=== PATIENT | male | born 1960 | race Caucasian/White ===

== ENCOUNTER 2016-04-29 05:31 | Inpatient (IN) | payer OTHER ==
[~2016-04-29] VITALS: Ht 177.8 cm; Wt 61.2 kg
[2016-04-29] VITALS (55 sets, daily range): BP systolic 60–153; RESP 17–37; TEMP 97.1–98.9; Ht 177.8 cm; Wt 61.2 kg
[2016-04-29] MEDS ORDERED: MAG HYDROX 30 ML UDC PO PRN ×2 (08:15→08:20)
[2016-04-29] MEDS ORDERED: BISACODYL 10 MG SUPP RECTAL PRN ×2 (08:15→08:20)
[2016-04-29] MEDS ORDERED: ALU/MAG/SIM 30 ML UDC PO PRN ×2 (08:15→08:20)
[2016-04-29] MEDS ORDERED: SALINE FLUSH 10 ML FLUSH PRN ×2 (08:15→08:20)
[2016-04-29] MEDS ORDERED: BISACODYL EC 5 MG TAB PO PRN ×2 (08:15→08:20)
[2016-04-29] MEDS ORDERED: ACETAMINOPHEN 325 MG TAB PO PRN (08:20)
[2016-04-29] MEDS ORDERED: ONDANSETRON 4 MG VIAL IV PRN (08:20)
[2016-04-29] MEDS ORDERED: **NOTE TO NURSE XX SCH (08:45)
[2016-04-29] MEDS ORDERED: NOREPINEPHRINE 16 MG in DEXTROSE 5% 234 ML IV SCH (08:50)
[2016-04-29] MEDS ORDERED: CEFTRIAXONE 1 GM in SODIUM CHLORIDE 0.9% 50 ML IV SCH (09:00)
[2016-04-29] MEDS ORDERED: PANTOPRAZOLE 40 MG VIAL IV SCH (09:00)
[2016-04-29] MEDS ORDERED: DOXYCYCLINE 100 MG in SODIUM CHLORIDE 0.9% 250 ML IV SCH (09:07)
[2016-04-29] MEDS: PROPOFOL 100 ML 100 ML IV PRN ×3 (09:18→17:59)
[2016-04-29] MEDS ORDERED: LACT RINGERS 1,000 ML IV ONE (10:00)
[2016-04-29] MEDS ORDERED: FENTANYL DRIP 50 ML IV PRN (10:05)
[2016-04-29] MEDS ORDERED: PHARMACY TO DOSE IV SCH (10:55)
[2016-04-29] MEDS ORDERED: CEFEPIME 2,000 MG in SODIUM CHLORIDE 0.9% 100 ML IV SCH (10:55)
[2016-04-29] MEDS: ENOXAPARIN 40 MG/0.4 ML SYR SUBQ SCH (10:59)
[2016-04-29] MEDS: NEB-BROVANA 15 MCG/2 ML INH SCH ×2 (11:01→18:08)
[2016-04-29] MEDS: SODIUM CHLORIDE 0.9% 1,000 ML IV SCH (11:03)
[2016-04-29] MEDS: DUONEB INH SCH ×4 (11:17→22:49)
[2016-04-29] MEDS: METHYLPRED SOD SUCC 40 MG VIAL IV SCH ×2 (11:29→17:58)
[2016-04-29] MEDS: SODIUM CHLORIDE 0.9% FLUSH BAG 500 ML IV SCH (11:30)
[2016-04-29] MEDS: FENTANYL DRIP 50 ML IV PRN ×3 (11:34→17:59)
[2016-04-29] MEDS: VANCOMYCIN 1,250 MG in SODIUM CHLORIDE 0.9% 250 ML IV SCH (12:35)
[2016-04-29] MEDS ORDERED: PHENTOLAMINE 5 MG VIAL INTRADERM ONE (14:00)
[2016-04-29] MEDS: CEFEPIME 2,000 MG in DEXTROSE 5% 100 ML IV SCH (16:25)
[2016-04-29] MEDS: FAMOTIDINE 20 MG INJ IV SCH (19:42)
[2016-04-29] MEDS: SALINE FLUSH 10 ML FLUSH SCH ×2 (19:43)
[2016-04-30] VITALS (49 sets, daily range): BP systolic 90–152; RESP 10–21; TEMP 98–99
[2016-04-30] MEDS: CEFEPIME 2,000 MG in DEXTROSE 5% 100 ML IV SCH ×3 (00:04→16:10)
[2016-04-30] MEDS: METHYLPRED SOD SUCC 40 MG VIAL IV SCH ×4 (00:04→18:33)
[2016-04-30] MEDS: VANCOMYCIN 1,250 MG in SODIUM CHLORIDE 0.9% 250 ML IV SCH ×2 (00:04→11:37)
[2016-04-30] MEDS: FENTANYL DRIP 50 ML IV PRN ×4 (00:10→18:35)
[2016-04-30] MEDS ORDERED: *PINK BRACELET XX ONE (01:05)
[2016-04-30] MEDS: DUONEB INH SCH ×6 (02:11→23:08)
[2016-04-30] MEDS: SODIUM CHLORIDE 0.9% 1,000 ML IV SCH ×2 (05:42→18:35)
[2016-04-30] MEDS: SODIUM CHLORIDE 0.9% FLUSH BAG 500 ML IV SCH (05:43)
[2016-04-30] MEDS: NEB-BROVANA 15 MCG/2 ML INH SCH ×2 (07:20→18:14)
[2016-04-30] MEDS: ENOXAPARIN 40 MG/0.4 ML SYR SUBQ SCH (07:43)
[2016-04-30] MEDS: FAMOTIDINE 20 MG INJ IV SCH ×2 (07:45→20:06)
[2016-04-30] MEDS: SALINE FLUSH 10 ML FLUSH SCH ×4 (07:45→20:07)
[2016-04-30] MEDS: PROPOFOL 100 ML 100 ML IV PRN ×2 (07:48→18:33)
[2016-04-30] MEDS: *HOME MEDS KEPT IN PHARMACY XX SCH ×2 (08:00→20:00)
[2016-04-30] MEDS ORDERED: KAYEXOLATE 15 GM/60 ML BTL PO ONE (11:10)
[2016-04-30] MEDS: CHLORHEXIDINE 0.12% ORAL CARE FOR VENT PATIENTS 15 ML SWAB SCH (11:38)
[2016-05-01] VITALS (36 sets, daily range): BP systolic 90–137; RESP 14–16; TEMP 98–98.5
[2016-05-01] MEDS: VANCOMYCIN 1,250 MG in SODIUM CHLORIDE 0.9% 250 ML IV SCH ×2 (00:03→12:07)
[2016-05-01] MEDS: CHLORHEXIDINE 0.12% ORAL CARE FOR VENT PATIENTS 15 ML SWAB SCH ×3 (00:03→12:06)
[2016-05-01] MEDS: CEFEPIME 2,000 MG in DEXTROSE 5% 100 ML IV SCH ×3 (00:03→15:57)
[2016-05-01] MEDS: METHYLPRED SOD SUCC 40 MG VIAL IV SCH ×4 (00:05→18:07)
[2016-05-01] MEDS: FENTANYL DRIP 50 ML IV PRN ×5 (00:41→21:39)
[2016-05-01] MEDS: DUONEB INH SCH ×6 (02:32→22:43)
[2016-05-01] MEDS: SODIUM CHLORIDE 0.9% 1,000 ML IV SCH ×3 (03:11→21:47)
[2016-05-01] MEDS: PROPOFOL 100 ML 100 ML IV PRN ×4 (03:11→21:47)
[2016-05-01] MEDS: SODIUM CHLORIDE 0.9% FLUSH BAG 500 ML IV SCH ×2 (03:12→06:38)
[2016-05-01] MEDS: NEB-BROVANA 15 MCG/2 ML INH SCH ×2 (07:05→18:31)
[2016-05-01] MEDS: *HOME MEDS KEPT IN PHARMACY XX SCH ×2 (08:00→19:30)
[2016-05-01] MEDS: SALINE FLUSH 10 ML FLUSH SCH ×4 (08:00→19:29)
[2016-05-01] MEDS: ENOXAPARIN 40 MG/0.4 ML SYR SUBQ SCH (08:02)
[2016-05-01] MEDS: FAMOTIDINE 20 MG INJ IV SCH ×2 (08:02→19:30)
[2016-05-02] VITALS (34 sets, daily range): BP systolic 95–155; RESP 6–25; TEMP 97.2–99
[2016-05-02] MEDS: CEFEPIME 2,000 MG in DEXTROSE 5% 100 ML IV SCH ×3 (00:05→14:40)
[2016-05-02] MEDS: METHYLPRED SOD SUCC 40 MG VIAL IV SCH ×6 (00:05→20:18)
[2016-05-02] MEDS: CHLORHEXIDINE 0.12% ORAL CARE FOR VENT PATIENTS 15 ML SWAB SCH ×3 (00:06→11:48)
[2016-05-02] MEDS: VANCOMYCIN 2,000 MG in SODIUM CHLORIDE 0.9% 500 ML IV SCH ×2 (00:06→11:47)
[2016-05-02] MEDS: FENTANYL DRIP 50 ML IV PRN ×6 (02:15→23:53)
[2016-05-02] MEDS: DUONEB INH SCH ×6 (02:43→23:14)
[2016-05-02] MEDS: PROPOFOL 100 ML 100 ML IV PRN ×3 (04:00→19:01)
[2016-05-02] MEDS: SODIUM CHLORIDE 0.9% FLUSH BAG 500 ML IV SCH ×2 (05:54)
[2016-05-02] MEDS: NEB-BROVANA 15 MCG/2 ML INH SCH ×2 (06:32→19:48)
[2016-05-02] MEDS ORDERED: PANTOPRAZOLE 40 MG TAB PO SCH (07:00)
[2016-05-02] MEDS: SALINE FLUSH 10 ML FLUSH SCH ×4 (08:00→20:18)
[2016-05-02] MEDS: *HOME MEDS KEPT IN PHARMACY XX SCH ×2 (08:00→20:00)
[2016-05-02] MEDS: ENOXAPARIN 40 MG/0.4 ML SYR SUBQ SCH (08:10)
[2016-05-02] MEDS: FAMOTIDINE 20 MG INJ IV SCH ×2 (08:10→20:18)
[2016-05-02] MEDS ORDERED: CHLORHEXIDINE 0.12% ORAL CARE FOR VENT PATIENTS 15 ML SWAB SCH (12:00)
[2016-05-02] MEDS: SODIUM CHLORIDE 0.9% 1,000 ML IV SCH (17:16)
[2016-05-02] MEDS ORDERED: MIDAZOLAM HCL 5 MG/5 ML VIAL IV PRN (18:55)
[2016-05-03] VITALS (34 sets, daily range): BP systolic 114–156; RESP 9–23; TEMP 97.4–99.1
[2016-05-03] MEDS: CEFEPIME 2,000 MG in DEXTROSE 5% 100 ML IV SCH ×3 (00:01→16:19)
[2016-05-03] MEDS: CHLORHEXIDINE 0.12% ORAL CARE FOR VENT PATIENTS 15 ML SWAB SCH ×2 (00:01→11:45)
[2016-05-03] MEDS: VANCOMYCIN 2,000 MG in SODIUM CHLORIDE 0.9% 500 ML IV SCH ×2 (00:01→11:44)
[2016-05-03] MEDS: DUONEB INH SCH ×6 (02:56→23:02)
[2016-05-03] MEDS: PROPOFOL 100 ML 100 ML IV PRN ×3 (03:03→17:05)
[2016-05-03] MEDS: SODIUM CHLORIDE 0.9% 1,000 ML IV SCH (03:37)
[2016-05-03] MEDS: FENTANYL DRIP 50 ML IV PRN ×4 (04:18→21:18)
[2016-05-03] MEDS: SODIUM CHLORIDE 0.9% FLUSH BAG 500 ML IV SCH ×2 (05:05)
[2016-05-03] MEDS: NEB-BROVANA 15 MCG/2 ML INH SCH ×2 (06:15→19:16)
[2016-05-03] MEDS: METHYLPRED SOD SUCC 40 MG VIAL IV SCH ×3 (08:59→20:22)
[2016-05-03] MEDS: *HOME MEDS KEPT IN PHARMACY XX SCH ×2 (08:59→20:00)
[2016-05-03] MEDS: FAMOTIDINE 20 MG INJ IV SCH ×2 (08:59→20:22)
[2016-05-03] MEDS: SALINE FLUSH 10 ML FLUSH SCH ×4 (08:59→20:22)
[2016-05-03] MEDS ORDERED: BISACODYL 10 MG SUPP RECTAL PRN (09:00)
[2016-05-03] MEDS: ENOXAPARIN 40 MG/0.4 ML SYR SUBQ SCH (09:00)
[2016-05-04] VITALS (35 sets, daily range): BP systolic 87–178; RESP 9–28; TEMP 97.9–98.5
[2016-05-04] MEDS: CHLORHEXIDINE 0.12% ORAL CARE FOR VENT PATIENTS 15 ML SWAB SCH ×2 (00:09→12:32)
[2016-05-04] MEDS: PROPOFOL 100 ML 100 ML IV PRN ×5 (00:10→20:48)
[2016-05-04] MEDS: CEFEPIME 2,000 MG in DEXTROSE 5% 100 ML IV SCH ×3 (00:12→16:34)
[2016-05-04] MEDS: VANCOMYCIN 2,000 MG in SODIUM CHLORIDE 0.9% 500 ML IV SCH (00:29)
[2016-05-04] MEDS: FENTANYL DRIP 50 ML IV PRN ×5 (02:15→19:19)
[2016-05-04] MEDS: DUONEB INH SCH ×6 (03:23→22:31)
[2016-05-04] MEDS: SODIUM CHLORIDE 0.9% FLUSH BAG 500 ML IV SCH (05:32)
[2016-05-04] MEDS: VANCOMYCIN 1,000 MG in SODIUM CHLORIDE 0.9% 250 ML IV SCH ×3 (05:32→22:05)
[2016-05-04] MEDS: NEB-BROVANA 15 MCG/2 ML INH SCH ×2 (06:15→20:03)
[2016-05-04] MEDS: *HOME MEDS KEPT IN PHARMACY XX SCH ×2 (08:00→20:00)
[2016-05-04] MEDS: METHYLPRED SOD SUCC 40 MG VIAL IV SCH ×3 (08:59→20:48)
[2016-05-04] MEDS: FAMOTIDINE 20 MG INJ IV SCH ×2 (08:59→20:48)
[2016-05-04] MEDS: SALINE FLUSH 10 ML FLUSH SCH ×2 (08:59→20:47)
[2016-05-04] MEDS: ENOXAPARIN 40 MG/0.4 ML SYR SUBQ SCH (09:00)
[2016-05-04] MEDS: Furosemide 40 MG/4 ML VIAL IV SCH ×2 (11:54→20:48)
[2016-05-04] MEDS ORDERED: CHLORHEXIDINE 0.12% ORAL CARE FOR VENT PATIENTS 15 ML SWAB SCH (12:00)
[2016-05-04] MEDS ORDERED: Furosemide 40 MG/4 ML VIAL IV SCH (17:00)
[2016-05-05] VITALS (39 sets, daily range): BP systolic 91–226; RESP 10–35; TEMP 97.3–98.1
[2016-05-05] MEDS: CEFEPIME 2,000 MG in DEXTROSE 5% 100 ML IV SCH ×3 (00:10→16:50)
[2016-05-05] MEDS: CHLORHEXIDINE 0.12% ORAL CARE FOR VENT PATIENTS 15 ML SWAB SCH ×2 (00:10→12:00)
[2016-05-05] MEDS: FENTANYL DRIP 50 ML IV PRN ×2 (00:10→04:21)
[2016-05-05] MEDS: DUONEB INH SCH ×6 (03:03→23:08)
[2016-05-05] MEDS: PROPOFOL 100 ML 100 ML IV PRN (04:33)
[2016-05-05] MEDS: SODIUM CHLORIDE 0.9% FLUSH BAG 500 ML IV SCH (05:10)
[2016-05-05] MEDS: NEB-BROVANA 15 MCG/2 ML INH SCH ×2 (05:32→19:16)
[2016-05-05] MEDS: VANCOMYCIN 1,000 MG in SODIUM CHLORIDE 0.9% 250 ML IV SCH (06:05)
[2016-05-05] MEDS ORDERED: FENTANYL DRIP 50 ML IV PRN (07:20)
[2016-05-05] MEDS ORDERED: PROPOFOL 100 ML 100 ML IV PRN (07:20)
[2016-05-05] MEDS: SALINE FLUSH 10 ML FLUSH SCH ×2 (07:49→19:50)
[2016-05-05] MEDS: DEXMEDETOMIDINE 200 MCG in SODIUM CHLORIDE 0.9% 48 ML IV SCH ×5 (07:49→22:05)
[2016-05-05] MEDS: Furosemide 40 MG/4 ML VIAL IV SCH ×2 (07:50→19:50)
[2016-05-05] MEDS: FAMOTIDINE 20 MG INJ IV SCH ×2 (07:50→19:50)
[2016-05-05] MEDS: METHYLPRED SOD SUCC 40 MG VIAL IV SCH (07:50)
[2016-05-05] MEDS: ENOXAPARIN 40 MG/0.4 ML SYR SUBQ SCH (07:51)
[2016-05-05] MEDS: *HOME MEDS KEPT IN PHARMACY XX SCH ×2 (07:51→19:51)
[2016-05-05] MEDS ORDERED: MORPHINE 4 MG/ML SYR ONE (09:27)
[2016-05-05] MEDS ORDERED: MAGNESIUM SULF 1 GM/100 ML 100 ML IV ONE (09:30)
[2016-05-05] MEDS: MORPHINE 4 MG/ML SYR IV PRN ×6 (10:14→21:37)
[2016-05-05] MEDS ORDERED: MISSING DOSE XX ONE ×3 (11:05→19:20)
[2016-05-05] MEDS: VANCOMYCIN 1,250 MG in SODIUM CHLORIDE 0.9% 250 ML IV SCH ×2 (12:02→19:51)
[2016-05-05] MEDS ORDERED: IRON DEXTRAN 1,000 MG in SODIUM CHLORIDE 0.9% 500 ML IV ONE (19:50)
[2016-05-05] MEDS: METHYLPRED SOD SUCC 125 MG/2 ML VIAL IV SCH (19:50)
[2016-05-05] MEDS ORDERED: METHYLPRED SOD SUCC 125 MG/2 ML VIAL IV SCH (20:00)
[2016-05-05] MEDS ORDERED: IRON DEXTRAN IV ONE (20:00)
[2016-05-05] MEDS ORDERED: ADMIX IV ONE (20:00)
[2016-05-06] VITALS (29 sets, daily range): BP systolic 104–165; RESP 14–27; TEMP 96.3–98.3
[2016-05-06] MEDS: CEFEPIME 2,000 MG in DEXTROSE 5% 100 ML IV SCH ×2 (00:41→08:05)
[2016-05-06] MEDS: DUONEB INH SCH ×2 (02:39→05:09)
[2016-05-06] MEDS: DEXMEDETOMIDINE 200 MCG in SODIUM CHLORIDE 0.9% 48 ML IV SCH ×6 (02:45→21:30)
[2016-05-06] MEDS: VANCOMYCIN 1,250 MG in SODIUM CHLORIDE 0.9% 250 ML IV SCH ×3 (04:12→20:19)
[2016-05-06] MEDS: NEB-BROVANA 15 MCG/2 ML INH SCH ×2 (05:09→18:50)
[2016-05-06] MEDS: SODIUM CHLORIDE 0.9% 1,000 ML IV SCH (05:56)
[2016-05-06] MEDS: SODIUM CHLORIDE 0.9% FLUSH BAG 500 ML IV SCH (05:56)
[2016-05-06] MEDS: MORPHINE 4 MG/ML SYR IV PRN ×11 (06:10→22:59)
[2016-05-06] MEDS ORDERED: MISSING DOSE XX ONE ×2 (07:15→11:45)
[2016-05-06] MEDS: SALINE FLUSH 10 ML FLUSH SCH ×2 (07:42→20:18)
[2016-05-06] MEDS: METHYLPRED SOD SUCC 125 MG/2 ML VIAL IV SCH ×2 (08:05→20:19)
[2016-05-06] MEDS: Furosemide 40 MG/4 ML VIAL IV SCH ×2 (08:05→20:18)
[2016-05-06] MEDS: FAMOTIDINE 20 MG INJ IV SCH ×2 (08:05→20:19)
[2016-05-06] MEDS: *HOME MEDS KEPT IN PHARMACY XX SCH ×2 (08:05→20:00)
[2016-05-06] MEDS: ENOXAPARIN 40 MG/0.4 ML SYR SUBQ SCH (08:06)
[2016-05-06] MEDS: NEB-ALBUTEROL 2.5 MG/3 ML INH SCH ×7 (10:35→23:20)
[2016-05-07] VITALS (28 sets, daily range): BP systolic 95–160; RESP 12–22; TEMP 96.9–98.5
[2016-05-07] MEDS: NEB-ALBUTEROL 2.5 MG/3 ML INH SCH ×12 (00:39→22:36)
[2016-05-07] MEDS ORDERED: MISSING DOSE XX ONE ×2 (01:40→10:55)
[2016-05-07] MEDS: DEXMEDETOMIDINE 200 MCG in SODIUM CHLORIDE 0.9% 48 ML IV SCH ×2 (02:09→12:10)
[2016-05-07] MEDS: MORPHINE 4 MG/ML SYR IV PRN ×8 (03:34→23:00)
[2016-05-07] MEDS: SODIUM CHLORIDE 0.9% FLUSH BAG 500 ML IV SCH (06:00)
[2016-05-07] MEDS: NEB-BROVANA 15 MCG/2 ML INH SCH ×2 (06:52→19:06)
[2016-05-07] MEDS: *HOME MEDS KEPT IN PHARMACY XX SCH ×2 (08:00→20:00)
[2016-05-07] MEDS: SALINE FLUSH 10 ML FLUSH SCH ×2 (08:04→20:26)
[2016-05-07] MEDS: FAMOTIDINE 20 MG INJ IV SCH ×2 (08:05→20:26)
[2016-05-07] MEDS: Furosemide 40 MG/4 ML VIAL IV SCH ×2 (08:05→20:26)
[2016-05-07] MEDS: METHYLPRED SOD SUCC 125 MG/2 ML VIAL IV SCH ×2 (08:05→20:27)
[2016-05-07] MEDS: ENOXAPARIN 40 MG/0.4 ML SYR SUBQ SCH (08:06)
[2016-05-07] MEDS: SODIUM CHLORIDE 0.9% 1,000 ML IV SCH ×2 (09:57→18:37)
[2016-05-08] VITALS (19 sets, daily range): BP systolic 92–148; RESP 12–26; TEMP 97.3–98.8
[2016-05-08] MEDS: NEB-ALBUTEROL 2.5 MG/3 ML INH SCH ×10 (00:30→23:07)
[2016-05-08] MEDS: MORPHINE 4 MG/ML SYR IV PRN (00:44)
[2016-05-08] MEDS: SODIUM CHLORIDE 0.9% FLUSH BAG 500 ML IV SCH ×2 (05:51→11:29)
[2016-05-08] MEDS: SODIUM CHLORIDE 0.9% 1,000 ML IV SCH (05:52)
[2016-05-08] MEDS: NEB-BROVANA 15 MCG/2 ML INH SCH ×2 (06:10→18:08)
[2016-05-08] MEDS: *HOME MEDS KEPT IN PHARMACY XX SCH ×2 (08:00→20:00)
[2016-05-08] MEDS: ENOXAPARIN 40 MG/0.4 ML SYR SUBQ SCH (08:07)
[2016-05-08] MEDS: METHYLPRED SOD SUCC 125 MG/2 ML VIAL IV SCH ×2 (08:07→20:05)
[2016-05-08] MEDS: Furosemide 40 MG/4 ML VIAL IV SCH ×2 (08:08→20:05)
[2016-05-08] MEDS: SALINE FLUSH 10 ML FLUSH SCH ×2 (08:08→20:04)
[2016-05-08] MEDS: FAMOTIDINE 20 MG INJ IV SCH (08:08)
[2016-05-08] MEDS: GUAIFENESIN ER 600 MG TABCR PO SCH ×2 (16:42→20:06)
[2016-05-08] MEDS: FAMOTIDINE 20 MG TAB PO SCH (20:06)
[2016-05-09] MEDS: NEB-ALBUTEROL 2.5 MG/3 ML INH SCH ×9 (00:07→22:29)
[2016-05-09 03:28] VITALS: BP_SYST 120; TEMP 97.7
[2016-05-09] MEDS: SODIUM CHLORIDE 0.9% FLUSH BAG 500 ML IV SCH (06:00)
[2016-05-09] MEDS ORDERED: MISSING DOSE XX ONE (07:35)
[2016-05-09 07:40] VITALS: BP_SYST 126; RESP 22; TEMP 97.9
[2016-05-09] MEDS: NEB-BROVANA 15 MCG/2 ML INH SCH ×2 (07:45→19:42)
[2016-05-09] MEDS: *HOME MEDS KEPT IN PHARMACY XX SCH ×2 (08:00→20:00)
[2016-05-09] MEDS: Furosemide 40 MG/4 ML VIAL IV SCH ×2 (08:27→21:32)
[2016-05-09] MEDS: METHYLPRED SOD SUCC 125 MG/2 ML VIAL IV SCH ×2 (08:27→21:32)
[2016-05-09] MEDS: SALINE FLUSH 10 ML FLUSH SCH ×2 (08:27→20:00)
[2016-05-09] MEDS: GUAIFENESIN ER 600 MG TABCR PO SCH ×2 (08:28→21:30)
[2016-05-09] MEDS: ENOXAPARIN 40 MG/0.4 ML SYR SUBQ SCH (08:29)
[2016-05-09 08:45] VITALS: RESP 22
[2016-05-09] MEDS ORDERED: KCL CR 10 MEQ CAP PO ONE (10:35)
[2016-05-09] MEDS ORDERED: ALPRAZOLAM 0.25 MG TAB PO PRN (10:35)
[2016-05-09] MEDS: DIPHENOXYLATE/ATROP TAB 2.5 MG TAB PO PRN (11:50)
[2016-05-09] MEDS: SACCHA BOULARDII 250MG CAP PO SCH ×2 (11:50→21:31)
[2016-05-09 12:03] VITALS: BP_SYST 140; TEMP 99
[2016-05-09 15:21] VITALS: BP_SYST 140; TEMP 99.1
[2016-05-09 20:40] VITALS: BP_SYST 136; RESP 18; TEMP 98.4
[2016-05-09] MEDS: FAMOTIDINE 20 MG TAB PO SCH (21:31)
[2016-05-09] MEDS: KCL CR 10 MEQ CAP PO SCH (21:31)
[2016-05-10] VITALS (8 sets, daily range): BP systolic 102–132; RESP 16–22; TEMP 97.1–99.2
[2016-05-10] MEDS: SODIUM CHLORIDE 0.9% FLUSH BAG 500 ML IV SCH (05:59)
[2016-05-10] MEDS: DIPHENOXYLATE/ATROP TAB 2.5 MG TAB PO PRN (06:27)
[2016-05-10] MEDS: NEB-BROVANA 15 MCG/2 ML INH SCH ×2 (06:55→18:59)
[2016-05-10] MEDS: NEB-ALBUTEROL 2.5 MG/3 ML INH SCH ×5 (06:56→22:34)
[2016-05-10] MEDS: *HOME MEDS KEPT IN PHARMACY XX SCH ×2 (08:00→20:00)
[2016-05-10] MEDS: Furosemide 40 MG/4 ML VIAL IV SCH ×2 (08:34→20:11)
[2016-05-10] MEDS: SALINE FLUSH 10 ML FLUSH SCH ×2 (08:34→20:10)
[2016-05-10] MEDS: METHYLPRED SOD SUCC 125 MG/2 ML VIAL IV SCH ×2 (08:35→20:10)
[2016-05-10] MEDS: GUAIFENESIN ER 600 MG TABCR PO SCH ×2 (08:36→20:12)
[2016-05-10] MEDS: ENOXAPARIN 40 MG/0.4 ML SYR SUBQ SCH (08:37)
[2016-05-10] MEDS: SACCHA BOULARDII 250MG CAP PO SCH ×2 (08:38→20:12)
[2016-05-10] MEDS: KCL CR 10 MEQ CAP PO SCH ×2 (08:38→20:11)
[2016-05-10] MEDS: FAMOTIDINE 20 MG TAB PO SCH (20:12)
[2016-05-11] VITALS (7 sets, daily range): BP systolic 104–118; RESP 18–21; TEMP 96.6–99
[2016-05-11] MEDS: SODIUM CHLORIDE 0.9% FLUSH BAG 500 ML IV SCH (05:05)
[2016-05-11] MEDS: NEB-BROVANA 15 MCG/2 ML INH SCH (07:09)
[2016-05-11] MEDS: NEB-ALBUTEROL 2.5 MG/3 ML INH SCH ×3 (07:09→14:38)
[2016-05-11] MEDS: *HOME MEDS KEPT IN PHARMACY XX SCH ×2 (08:00→20:00)
[2016-05-11] MEDS: SALINE FLUSH 10 ML FLUSH SCH ×2 (08:29→20:02)
[2016-05-11] MEDS: METHYLPRED SOD SUCC 40 MG VIAL IV SCH ×3 (08:30→23:05)
[2016-05-11] MEDS: Furosemide 40 MG/4 ML VIAL IV SCH ×2 (08:30→20:02)
[2016-05-11] MEDS: GUAIFENESIN ER 600 MG TABCR PO SCH ×2 (08:30→20:03)
[2016-05-11] MEDS: KCL CR 10 MEQ CAP PO SCH ×2 (08:30→20:03)
[2016-05-11] MEDS: SACCHA BOULARDII 250MG CAP PO SCH ×2 (08:30→20:03)
[2016-05-11] MEDS: ENOXAPARIN 40 MG/0.4 ML SYR SUBQ SCH (08:31)
[2016-05-11] MEDS: DUONEB INH SCH ×2 (19:22→22:37)
[2016-05-11] MEDS: FAMOTIDINE 20 MG TAB PO SCH (20:03)
[2016-05-12] VITALS (8 sets, daily range): BP systolic 104–122; RESP 18–23; TEMP 96.7–98.4
[2016-05-12] MEDS: DUONEB INH SCH ×6 (03:16→22:30)
[2016-05-12] MEDS: SODIUM CHLORIDE 0.9% FLUSH BAG 500 ML IV SCH (06:11)
[2016-05-12] MEDS: *HOME MEDS KEPT IN PHARMACY XX SCH ×2 (07:50→19:27)
[2016-05-12] MEDS: GUAIFENESIN ER 600 MG TABCR PO SCH ×2 (09:05→20:28)
[2016-05-12] MEDS: KCL CR 10 MEQ CAP PO SCH ×2 (09:06→20:28)
[2016-05-12] MEDS: METHYLPRED SOD SUCC 40 MG VIAL IV SCH ×3 (09:06→23:16)
[2016-05-12] MEDS: SACCHA BOULARDII 250MG CAP PO SCH ×2 (09:07→20:28)
[2016-05-12] MEDS: ENOXAPARIN 40 MG/0.4 ML SYR SUBQ SCH (09:07)
[2016-05-12] MEDS: SALINE FLUSH 10 ML FLUSH SCH ×2 (09:07→20:27)
[2016-05-12] MEDS ORDERED: MISSING DOSE XX ONE (09:10)
[2016-05-12] MEDS: Furosemide 40 MG/4 ML VIAL IV SCH (10:03)
[2016-05-12] MEDS: BISOPROLOL 5 MG TAB PO SCH (12:14)
[2016-05-12] MEDS: FAMOTIDINE 20 MG TAB PO SCH (20:27)
[2016-05-13] VITALS (8 sets, daily range): BP systolic 105–132; RESP 16–22; TEMP 96.5–98.9
[2016-05-13] MEDS: SODIUM CHLORIDE 0.9% FLUSH BAG 500 ML IV SCH (02:16)
[2016-05-13] MEDS: DUONEB INH SCH ×6 (02:35→22:58)
[2016-05-13] MEDS: SALINE FLUSH 10 ML FLUSH SCH ×2 (07:55→19:52)
[2016-05-13] MEDS: METHYLPRED SOD SUCC 40 MG VIAL IV SCH ×2 (07:56→16:06)
[2016-05-13] MEDS: *HOME MEDS KEPT IN PHARMACY XX SCH ×2 (07:56→19:52)
[2016-05-13] MEDS: SACCHA BOULARDII 250MG CAP PO SCH ×2 (07:59→19:51)
[2016-05-13] MEDS: Furosemide 40 MG TAB PO SCH (07:59)
[2016-05-13] MEDS: BISOPROLOL 5 MG TAB PO SCH (07:59)
[2016-05-13] MEDS: KCL CR 10 MEQ CAP PO SCH ×2 (07:59→19:52)
[2016-05-13] MEDS: GUAIFENESIN ER 600 MG TABCR PO SCH ×2 (07:59→19:51)
[2016-05-13] MEDS: ENOXAPARIN 40 MG/0.4 ML SYR SUBQ SCH (08:01)
[2016-05-13] MEDS: FAMOTIDINE 20 MG TAB PO SCH (19:52)
[2016-05-14] VITALS: RESP 22
[2016-05-14] MEDS: METHYLPRED SOD SUCC 40 MG VIAL IV SCH ×3 (00:34→15:58)
[2016-05-14] MEDS: DUONEB INH SCH ×4 (02:45→15:48)
[2016-05-14 03:13] VITALS: BP_SYST 130; RESP 16; TEMP 97.3
[2016-05-14] MEDS: SODIUM CHLORIDE 0.9% FLUSH BAG 500 ML IV SCH (05:15)
[2016-05-14 07:55] VITALS: BP_SYST 126; RESP 16; TEMP 97.2
[2016-05-14] MEDS: SACCHA BOULARDII 250MG CAP PO SCH (08:23)
[2016-05-14] MEDS: BISOPROLOL 5 MG TAB PO SCH (08:23)
[2016-05-14] MEDS: Furosemide 40 MG TAB PO SCH (08:24)
[2016-05-14] MEDS: SALINE FLUSH 10 ML FLUSH SCH (08:24)
[2016-05-14] MEDS: KCL CR 10 MEQ CAP PO SCH (08:24)
[2016-05-14] MEDS: GUAIFENESIN ER 600 MG TABCR PO SCH (08:24)
[2016-05-14] MEDS: ENOXAPARIN 40 MG/0.4 ML SYR SUBQ SCH (08:25)
[2016-05-14] MEDS: *HOME MEDS KEPT IN PHARMACY XX SCH (08:25)
[2016-05-14 11:58] VITALS: BP_SYST 126; RESP 16; TEMP 97.2
== END 2016-05-14 16:52 | DRG 870 ==
LOC: ENRESERVTM → CANRESERV → ENRESERV → ENRESERVDT → CCU 07:23 → ENPENDDIS 07:23 → 4THW 05-08 12:48
PROVIDERS: ADMIT Family Medicine; ATTEND Family Medicine
PROC: 05H633Z Insertion of Infusion Device into Left Subclavian Vein, Percutaneous Approach (ICD-10-PCS; principal; 2016-04-29)
PROC: 5A1955Z Respiratory Ventilation, Greater than 96 Consecutive Hours (ICD-10-PCS; 2016-04-29)
PROC: B547ZZA Ultrasonography of Left Subclavian Vein, Guidance (ICD-10-PCS; 2016-04-29)
DX: A41.9 Sepsis, unspecified organism (principal); J96.21 Acute and chronic respiratory failure with hypoxia; R57.1 Hypovolemic shock; J44.1 Chronic obstructive pulmonary disease with (acute) exacerbation; R64 Cachexia; Z68.1 Body mass index [BMI] 19.9 or less, adult; K52.1 Toxic gastroenteritis and colitis; E87.5 Hyperkalemia; G25.81 Restless legs syndrome; Z99.81 Dependence on supplemental oxygen; F41.9 Anxiety disorder, unspecified; F32.9 Major depressive disorder, single episode, unspecified; F17.210 Nicotine dependence, cigarettes, uncomplicated; K21.9 Gastro-esophageal reflux disease without esophagitis; R65.20 Severe sepsis without septic shock; T36.95XA Adverse effect of unspecified systemic antibiotic, initial encounter; R00.0 Tachycardia, unspecified; T50.995A Adverse effect of other drugs, medicaments and biological substances, initial encounter
CPT/HCPCS: 36558; 36600; 71010; 80048; 80202; 82565; 82803; 83540; 83735; 83880; 84132; 84145; 84439; 84443; 84466; 84520; 85025; 87493; 93005; 94002; 94003; 94640; 94660; 94799; 99223; 99232; 99233; 99239; 99291

== ENCOUNTER 2016-06-02 06:01 | Observation (INO) | payer OTHER ==
[~2016-06-02] VITALS: Ht 180.3 cm; Wt 56.8 kg
[2016-06-02] MEDS ORDERED: METHYLPRED SOD SUCC 125 MG/2 ML VIAL ONE (06:37)
[2016-06-02] MEDS ORDERED: DUONEB INH ONE ×2 (06:45)
[2016-06-02] MEDS ORDERED: SALINE FLUSH 10 ML FLUSH PRN (11:20)
[2016-06-02] MEDS: NEB-BROVANA 15 MCG/2 ML INH SCH ×2 (11:36→19:42)
[2016-06-02] MEDS: NEB-BUDESONIDE 0.5 MG INH SCH ×2 (11:37→19:42)
[2016-06-02] MEDS: CEFTRIAXONE 1 GM in SODIUM CHLORIDE 0.9% 50 ML IV SCH (12:57)
[2016-06-02 13:00] VITALS: BP_SYST 116; RESP 18; TEMP 97.9; BMI 17.5
[2016-06-02] MEDS: DUONEB INH SCH ×3 (13:55→22:08)
[2016-06-02 14:01] VITALS: RESP 22
[2016-06-02 15:09] VITALS: BP_SYST 110; RESP 18; TEMP 98.1
[2016-06-02] MEDS: NEB-ALBUTEROL 2.5 MG/3 ML INH PRN (17:08)
[2016-06-02] MEDS: ONDANSETRON 4 MG VIAL IV PRN (17:21)
[2016-06-02 19:56] VITALS: BP_SYST 100; RESP 20; TEMP 97.7
[2016-06-02] MEDS ORDERED: SERTRALINE 50 MG TAB PO SCH (21:00)
[2016-06-02] MEDS: SALINE FLUSH 10 ML FLUSH SCH (21:30)
[2016-06-02] MEDS: Carvedilol 6.25 MG TAB PO SCH (21:30)
[2016-06-02 23:22] VITALS: BP_SYST 100; RESP 20; TEMP 97.7
[2016-06-02 23:38] VITALS: RESP 17
[2016-06-03] MEDS: ONDANSETRON 4 MG VIAL IV PRN (02:27)
[2016-06-03 02:33] VITALS: RESP 18
[2016-06-03 03:18] VITALS: BP_SYST 115; RESP 20; TEMP 97.9
[2016-06-03] MEDS ORDERED: SODIUM CHLORIDE 0.9% FLUSH BAG 500 ML IV SCH (06:00)
[2016-06-03] MEDS: DUONEB INH SCH (06:25)
[2016-06-03] MEDS: NEB-BROVANA 15 MCG/2 ML INH SCH (06:25)
[2016-06-03] MEDS: NEB-BUDESONIDE 0.5 MG INH SCH (06:25)
[2016-06-03 07:59] VITALS: BP_SYST 110; RESP 18; TEMP 98.9
[2016-06-03] MEDS ORDERED: SERTRALINE 50 MG TAB PO SCH ×2 (09:00→21:00)
[2016-06-03] MEDS ORDERED: PREDNISONE 20 MG TAB PO SCH (09:00)
[2016-06-03] MEDS: Carvedilol 6.25 MG TAB PO SCH (09:30)
[2016-06-03] MEDS: SALINE FLUSH 10 ML FLUSH SCH (09:30)
[2016-06-03] MEDS: CEFTRIAXONE 1 GM in SODIUM CHLORIDE 0.9% 50 ML IV SCH (09:30)
[2016-06-03 10:12] VITALS: Ht 180.3 cm; Wt 56.8 kg
[2016-06-03 11:08] VITALS: BP_SYST 102; RESP 18; TEMP 98.7
[2016-06-03] MEDS: NEB-ALBUTEROL 2.5 MG/3 ML INH PRN (11:26)
[2016-06-03 12:50] VITALS: BP_SYST 102; RESP 18; TEMP 98.7
== END 2016-06-03 11:42 | disposition home health service (06) ==
LOC: ENRESERVTM → ENRESERVDT → ER 06:01 → ENPENDDIS 11:17 → EMR 11:17 → 3NT 12:41
PROVIDERS: ADMIT Internal Medicine; ATTEND Internal Medicine
DX: J96.01 Acute respiratory failure with hypoxia (principal); J96.11 Chronic respiratory failure with hypoxia; T75.89XA Other specified effects of external causes, initial encounter; Z99.81 Dependence on supplemental oxygen; G47.00 Insomnia, unspecified; F41.9 Anxiety disorder, unspecified; Z79.899 Other long term (current) drug therapy; Z87.891 Personal history of nicotine dependence
CPT/HCPCS: 36415; 36600; 71010; 80053; 82553; 82803; 83880; 84484; 85025; 87804; 93005; 94640; 94660; 94799; 96365; 96366; 96374; 96375; 96376; 99217; 99220; 99238